=== PATIENT | male | born 1940 | race Caucasian/White ===

== ENCOUNTER 2016-12-08 16:20 | Emergency (ER) | payer OTHER, MEDICAID ==
[2016-12-08 16:27] VITALS: TEMP 98.1
--- NOTE | 2016-12-08 16:52 | EDPHY ---
H & P Time Seen by Provider: 12/08/16 16:30 HPI/ROS: CHIEF COMPLAINT: Left wrist and chest pain after a fall HISTORY OF PRESENT ILLNESS: Patient was in [place] 5 days ago and was stepping over a fence when he fell and landed with his arm flexed at the elbow and against his chest. Since then he has had left upper chest pain which is worse with movement and breathing as well as pain in his left wrist. The pain is chest does not associated with cough or fever. No syncope. Symptoms are mild but persistent. Does not radiate. Did not hit his head, no loss of consciousness. No syncope. REVIEW OF SYSTEMS: Eye: no change in vision ENT: no sore throat Cardiac: HPI Pulmonary: Not short of breath, no hemoptysis Abdomen: no vomiting, diarrhea, abdominal pain Musculoskeletal: no back pain or neck pain Skin: no rash Neuro: no headache Constitutional: no fever : no urinary symptoms A comprehensive 10 point review of systems is otherwise negative aside from elements mentioned in the history of present illness. PAST MEDICAL HISTORY: Negative Social history: Visiting from [place] will be in town for another week General Appearance: Alert and conversant, cooperative. Eyes: No scleral icterus. ENT, Mouth: Normal mucous membranes. Respiratory: Normal respiratory effort, breath sounds equal, lungs are clear to auscultation. No crepitus. He has tenderness to palpation in his mid axillary line under his armpit as well as anteriorly on the left side of his chest over his nipple area. Cardiovascular: Regular rate and rhythm. Gastrointestinal: Abdomen is soft and non tender. Specifically not tender over the liver or spleen. Neurological: Alert and oriented x3. Normally conversant. Face symmetric, normal movement and sensation in all extremities. Skin: Warm and dry, no rashes. Musculoskeletal: No cervical thoracic or lumbar spine tenderness. He has some left wrist tenderness in the snuff box. Normal motor and sensory in the left hand. Skin intact over the left upper extremity. Psychiatric: Not agitated. Emergency Department course/MDM: Urine dip negative for blood. Chest x-ray and left wrist x-ray performed. Patient declined pain medication. 1735: Results discussed, left thumb spica splint, mandatory orthopedic follow- up in the next week for possible occult scaphoid fracture. Smoking Status: Never smoked Constitutional: Initial Vital Signs Temperature (C) 36.7 C 12/08/16 16:24 Heart Rate 76 12/08/16 16:24 Respiratory Rate 16 12/08/16 16:24 Blood Pressure 132/56 H 12/08/16 16:24 O2 Sat (%) 98 12/08/16 16:24 O2 Delivery Mode Room Air Allergies/Adverse Reactions: No Known Allergies Allergy (Unverified 12/08/16 16:24) Home Medications: Medication Instructions Recorded NK [No Known Home Meds] 12/08/16 Medical Decision Making - Diagnostics Imaging Results: Imaging Impressions Chest X-Ray 12/08/16 16:47 Impression: Negative chest. Wrist X-Ray 12/08/16 16:47 Impression: Negative left wrist radiographs. Imaging: I viewed and interpreted images myself Differential Diagnosis: Differential for chest injury considered including but not limited to pneumothorax, hemothorax, rib fracture, chest wall contusion. Departure - Departure Disposition: Home, Routine, Self-Care Clinical Impression: Chest wall contusion Qualifiers: Encounter type: initial encounter Laterality: left Qualified Code(s): S20.212A - Contusion of left front wall of thorax, initial encounter Left wrist sprain Qualifiers: Encounter type: initial encounter Qualified Code(s): S63.502A - Unspecified sprain of left wrist, initial encounter Condition: Good Instructions: Contusion in Adults (ED) Referrals: SOH[facility] NEELY [Other] - As per Instructions Daniele Palacios MD [Medical Doctor] - As per Instructions (Please follow-up with Dr. Palacios next week You need repeat evaluation for possible occult scaphoid fracture.)
[2016-12-08 17:43] VITALS: BP 123/71; PULSE 53; RESP 18; O2SAT 96
== END 2016-12-08 18:30 | disposition home or self-care (01) ==
DX: S20.212A Contusion of left front wall of thorax, initial encounter (principal); S63.502A Unspecified sprain of left wrist, initial encounter; W01.198A Fall on same level from slipping, tripping and stumbling with subsequent striking against other object, initial encounter